=== PATIENT | female | born 1985 | race Caucasian/White ===

== ENCOUNTER 2018-07-29 14:01 | Emergency (ER) | payer OTHER ==
[2018-07-29 14:15] VITALS: BP 133/93
[2018-07-29] MEDS ORDERED: Albuterol 2.5 MG/3 ML NEB.SOL* (0.083%) INH ONE (14:21)
--- NOTE | 2018-07-29 14:26 | ED ---
Respiratory - HPI Summary HPI Summary: coughing for the last two weeks, cough initially producitive of yellow sputum, now with mostly whitish sputum. wheezing and shortness of breath over the last several days. no pleuritic pain. smokes 1/2 ppd - History of Current Complaint Chief Complaint: UCRespiratory Stated Complaint: COUGH Time Seen by Provider: 07/29/18 14:15 Hx Obtained From: Patient Onset/Duration: Gradual Onset, Lasting Weeks Initial Severity: Moderate Current Severity: Moderate Pain Intensity: 0 Character: Wheezing, Cough (Productive), Dyspnea on Exertion Sputum Amount: Small Sputum Color: White Aggravating Factor(s): Exertion Alleviating Factor(s): Nothing Associated Signs and Symptoms: SOB, Chills - Allergy/Home Medications Allergies/Adverse Reactions: Allergies Allergy/AdvReac Type Severity Reaction Status Date / Time No Known Allergies Allergy Verified 07/29/18 14:15 PMH/Surg Hx/FS Hx/Imm Hx Previously Healthy: Yes Psychiatric History: Reports: Hx Substance Abuse - heroin, Other Psychiatric Issues/Disorders - Surgical History Surgery Procedure, Year, and Place: LEEP procedure Infectious Disease History: No Infectious Disease History: Denies: Traveled Outside the [place] in Last 30 Days - Family History Known Family History: Positive: Respiratory Disease - asthma - Social History Alcohol Use: Rare Hx Substance Use: Yes Substance Use Type: Reports: None Substance Use Comment - Amount & Last Used: used to use heroin Hx Tobacco Use: Yes Smoking Status (MU): Light Every Day Tobacco Smoker Amount Used/How Often: 10 sig/day Review of Systems Constitutional: Negative Eyes: Negative ENT: Negative Cardiovascular: Negative Positive: Shortness Of Breath, Cough Gastrointestinal: Negative Genitourinary: Negative Musculoskeletal: Negative Skin: Negative Neurological: Negative All Other Systems Reviewed And Are Negative: Yes Physical Exam Triage Information Reviewed: Yes Vital Signs On Initial Exam: Initial Vitals Temp Pulse Resp BP Pulse Ox 36.6 C 112 16 133/93 96 07/29/18 14:09 07/29/18 14:09 07/29/18 14:09 07/29/18 14:09 07/29/18 14:09 Vital Signs Reviewed: Yes Appearance: Positive: Well-Appearing Skin: Positive: Warm, Dry Head/Face: Positive: Normal Head/Face Inspection Eyes: Positive: Normal ENT: Positive: Normal ENT inspection Neck: Positive: Supple Respiratory/Lung Sounds: Positive: Rales, Wheezes, Other - rales left lower lobe Cardiovascular: Positive: Normal Abdomen Description: Positive: Nontender Bowel Sounds: Positive: Present Diagnostics - Vital Signs Vital Signs Temp Pulse Resp BP Pulse Ox 07/29/18 14:09 36.6 C 112 16 133/93 96 - Laboratory Lab Statement: Any lab studies that have been ordered have been reviewed, and results considered in the medical decision making process. Disposition - Diagnoses Provider Diagnoses: Acute bronchitis, COPD (chronic obstructive pulmonary disease) Is Visit Related: No Discharge - Sign-Out/Discharge Documenting (check all that apply): Patient Departure All imaging exams completed and their final reports reviewed: Yes - Discharge Plan Condition: Fair Disposition: HOME Prescriptions: Amoxicillin PO (*) [Amoxicillin 500 MG CAP*] 500 mg PO TID #21 cap Fluconazole [Diflucan] 100 mg PO ONCE #1 tablet Spiriva Inhaler DEVICE* [Tiotropium Inhaler DEVICE*] 1 inh PO DAILY #30 device Patient Education Materials: Acute Bronchitis (ED), COPD (Chronic Obstructive Pulmonary Disease) (ED) Referrals: Patricia Odonnell MD [Primary Care Provider] - - Billing Disposition and Condition Condition: FAIR Disposition: Home
== END 2018-07-29 15:08 | disposition home or self-care (01) ==
LOC: UCEAST 14:01
DX: J44.9 Chronic obstructive pulmonary disease, unspecified (principal); F17.200 Nicotine dependence, unspecified, uncomplicated
CPT/HCPCS: 71046; 99212; G0463

== ENCOUNTER 2018-09-03 22:15 | Emergency (ER) | payer OTHER ==
--- NOTE | 2018-09-03 23:27 | ED ---
Skin Complaint - HPI Summary HPI Summary: This patient is a 32 y/o female, accompanied by her friend, who presents to [facility] with a chief complaint of an upper lip abscess since 09/01/18. She reports that this pimple has caused swelling and pain. At triage the patient rated her pain as an 8/10 in severity. She also reports a fever of 102.0 on . Temperature at triage measured to be 99/8. She claims that her swelling has doubled in size on 09/03/18. She denies any Hx of allergic reactions. She is currently using a control implant. - History of Current Complaint Chief Complaint: EDRashSkinAbscess Time Seen by Provider: 09/03/18 23:14 Stated Complaint: ABSCESS Hx Obtained From: Patient Onset/Duration: Started Hours Ago, Started Days Ago, Still Present Timing: Constant, Lasting Days Onset Severity: Moderate Current Severity: Severe Pain Intensity: 8 Pain Scale Used: 0-10 Numeric Skin Location: Other: - upper lip Character: Swelling, Pain Aggravating Symptom(s): Nothing Alleviating Symptom(s): Nothing Associated Signs & Symptoms: Fever - Allergy/Home Medications Allergies/Adverse Reactions: Allergies Allergy/AdvReac Type Severity Reaction Status Date / Time No Known Allergies Allergy Verified 09/03/18 22:21 PMH/Surg Hx/FS Hx/Imm Hx Sensory History: Denies: Hx Deafness Opthamlomology History: Denies: Hx Legally Blind Psychiatric History: Reports: Hx Substance Abuse - heroin, Other Psychiatric Issues/Disorders - Surgical History Surgery Procedure, Year, and Place: LEEP procedure Infectious Disease History: No Infectious Disease History: Denies: Traveled Outside the [place] in Last 30 Days - Family History Known Family History: Positive: Respiratory Disease - asthma - Social History Alcohol Use: Rare Hx Substance Use: Yes Substance Use Type: Reports: None Substance Use Comment - Amount & Last Used: used to use heroin Hx Tobacco Use: Yes Smoking Status (MU): Light Every Day Tobacco Smoker Amount Used/How Often: 10 sig/day Review of Systems Positive: Fever - she reported [employer] Positive: Other - Positive abscess, swelling and pain to upper lip Positive: Other - positive: abscess, swelling and pain to upper lip All Other Systems Reviewed And Are Negative: Yes Physical Exam - Summary Physical Exam Summary: Appearance: Well-appearing, Well-nourished, lying in bed comfortable Skin: Warm, dry, no obvious rash Eyes: sclera anicteric, no conjunctival pallor ENT: mucous membranes moist, upper lip diffuse moderate swelling with induration and fluctuance, bedside screening ultrasound showed fluid collection consistent with abscess. No signs of odontogenic infection. Neck: deferred Respiratory: No signs of respiratory distress Cardiovascular: Appears well perfused, mild tachycardia likely due to anxiety Abdomen: deferred Musculoskeletal: Moving all 4 extremities without obvious discomfort Neurological: Awake and alert, mentation is normal, speech is fluent and appropriate Psychiatric: affect is normal, does not appear anxious or depressed Triage Information Reviewed: Yes Vital Signs On Initial Exam: Initial Vitals Temp Pulse Resp BP Pulse Ox 99.8 F 115 16 151/104 97 09/03/18 22:17 09/03/18 22:17 09/03/18 22:17 09/03/18 22:17 09/03/18 22:17 Vital Signs Reviewed: Yes Procedures - Incision and Drainage Upper Face Anesthesia: Other - regional, trish infraorbital blocks with marcaine and lidocaine with epi Instrument(s): Scalpel - #11, a small stab incision was made in the lip and the lip was probed to break up loculations. A small amount of pus was drained. Diagnostics - Vital Signs Vital Signs Temp Pulse Resp BP Pulse Ox 09/03/18 22:17 99.8 F 115 16 151/104 97 - Laboratory Lab Statement: Any lab studies that have been ordered have been reviewed, and results considered in the medical decision making process. Course/Dx - Course Course Of Treatment: This patient is a 32 y/o female, accompanied by her friend , who presents to [facility] with a chief complaint of an upper lip abscess since . She reports that this pimple has caused swelling and pain. At triage the patient rated her pain as an 8/10 in severity. She also reports a fever of 102.0 on 09/03/18. Temperature at triage measured to be 99/8. She claims that her swelling has doubled in size on 09/03/18. She denies any Hx of allergic reactions. She is currently using a control implant. The physical exam showed upper lip diffuse moderate swelling with induration and fluctuance, bedside screening ultrasound showed fluid collection consistent with abscess. No signs of odontogenic infection. An incision and drainage procedure was performed. The patient will be discharged with Bactrim. She is agreeable with this plan. - Diagnoses Provider Diagnoses: Lip abscess Discharge - Sign-Out/Discharge Documenting (check all that apply): Patient Departure - DC Patient Received Moderate/Deep Sedation with Procedure: No - Discharge Plan Condition: Good Disposition: HOME Prescriptions: Sulfamethox/Trimethoprim DS* [Bactrim DS 800/160 TAB*] 1 tab PO BID #14 tab Referrals: Sundar Morin MD [Medical Doctor] - Additional Instructions: I have done as much of a procedure as I can safely do here in the ED. Hopefully this and the antibiotic will allow this infection to heal. Please call Dr. Morin's office in the morning for a followup exam with them so they can make sure this is healing properly. If it is not they may need to do a more involved procedure to drain it. - Billing Disposition and Condition Condition: GOOD Disposition: Home - Attestation Statements Document Initiated by Fede: Yes Documenting Scribe: Oliverio Pisano Provider For Whom Fede is Documenting (Include Credential): Tapan Gan MD Scribe Attestation: I, Oliverio Pisano, scribed for Tapan Gan MD on 09/04/18 at 2349. Scribe Documentation Reviewed: Yes Provider Attestation: The documentation as recorded by the Oliverio zarate accurately reflects the service I personally performed and the decisions made by me, Tapan Gan MD Status of Scribe Document: Viewed
[2018-09-04] MEDS ORDERED: Sulfamethox/Trimethoprim DS 800/160* TAB PO ONE (00:31)
[2018-09-04 04:20] VITALS: BP 139/97
== END 2018-09-04 00:59 | disposition home or self-care (01) ==
LOC: ED 22:15
DX: K12.2 Cellulitis and abscess of mouth (principal); R50.9 Fever, unspecified; F17.210 Nicotine dependence, cigarettes, uncomplicated
CPT/HCPCS: 10060; 99284; A9270-GY

== ENCOUNTER 2018-09-05 15:39 | Emergency (ER) | payer OTHER ==
[2018-09-05] MEDS ORDERED: NS 0.9% 1000 ML** 1,000 ML IV ONE ×2 (16:02→16:14)
--- NOTE | 2018-09-05 16:02 | ED ---
Skin Complaint - HPI Summary HPI Summary: Patient is a 32-year-old female who presents to emergency department for infection to her top lip times one week. Patient states that week ago she squeezed a pimple located just above her left upper lip. She states that area progressively got more painful, swollen and red. She was seen in the ER 09/03 and area was partially drained she was placed on Bactrim. Patient notes fevers at home. Denies associated symptoms of nausea, vomiting, difficulty swallowing or breathing. Past medical history of drug abuse. Symptoms are moderate in severity. Touching affected area makes symptoms worse. Nothing makes symptoms better. - History of Current Complaint Chief Complaint: EDFacialInjury Time Seen by Provider: 09/05/18 15:50 Stated Complaint: LIP INFECTION Hx Obtained From: Patient Pain Intensity: 10 - Allergy/Home Medications Allergies/Adverse Reactions: Allergies Allergy/AdvReac Type Severity Reaction Status Date / Time No Known Allergies Allergy Verified 09/03/18 22:21 PMH/Surg Hx/FS Hx/Imm Hx Previously Healthy: Yes Sensory History: Denies: Hx Legally Blind, Hx Deafness Opthamlomology History: Denies: Hx Legally Blind Psychiatric History: Reports: Hx Substance Abuse - heroin, Other Psychiatric Issues/Disorders - Surgical History Surgery Procedure, Year, and Place: LEEP procedure Infectious Disease History: No Infectious Disease History: Denies: Traveled Outside the [place] in Last 30 Days - Family History Known Family History: Positive: Respiratory Disease - asthma - Social History Occupation: Unemployed Lives: With Family Alcohol Use: Rare Hx Substance Use: Yes Substance Use Type: Reports: None Substance Use Comment - Amount & Last Used: used to use heroin Hx Tobacco Use: Yes Smoking Status (MU): Light Every Day Tobacco Smoker Amount Used/How Often: 10 sig/day Review of Systems Positive: Fever, Chills Positive: Other - Swelling and pain to upper lip Cardiovascular: Negative Respiratory: Negative Gastrointestinal: Negative Negative: Abdominal Pain, Vomiting, Nausea Skin: Negative All Other Systems Reviewed And Are Negative: Yes Physical Exam Triage Information Reviewed: Yes Vital Signs On Initial Exam: Initial Vitals Temp Pulse Resp BP Pulse Ox 98.4 F 97 14 156/100 96 09/05/18 15:45 09/05/18 15:45 09/05/18 15:45 09/05/18 15:45 09/05/18 15:45 Vital Signs Reviewed: Yes Appearance: Positive: Pain Distress - Pt. lying on bed, appears in pain but nontoxic appearing. Skin: Positive: Warm, Dry Head/Face: Positive: Normal Head/Face Inspection Eyes: Positive: Normal, EOMI ENT: Positive: Other - Significant edema noted to the top lip diffusely with erythema. Diffuse induration. A few small wounds noted. No drainage. Very minimal edema to face. No swelling of tongue or oral pharynx. Neck: Positive: Supple, Nontender, No Lymphadenopathy Musculoskeletal: Positive: Normal, Strength/ROM Intact Neurological: Positive: Normal, Alert, Oriented to Person Place, Time Diagnostics - Vital Signs Vital Signs Temp Pulse Resp BP Pulse Ox 09/05/18 15:45 98.4 F 97 14 156/100 96 - Laboratory Result Diagrams: 09/05/18 16:33 09/05/18 16:33 Lab Statement: Any lab studies that have been ordered have been reviewed, and results considered in the medical decision making process. Course/Dx - Course Course Of Treatment: Patient presenting with marked infection to her upper lip. She is afebrile with stable vital signs. Patient evaluated by Dr. Eubanks as well. Will start patient on IV antibiotics, vancomycin and Zosyn. Pending labs. CBC shows normal WBC. CRP elevated at 78. Dr. Eubanks recommends admission for ongoing iv antibx given extend of infection and worsening swelling despite bactrim. U/S obtained to evaluate for drainable abscess. U/S shows edema with very small 1cm collection of fluid per radiology. Discussed with pt. admission but pt. states she would rather go home and continue PO meds. Pt. has decision making capacity. Discussed with patient if this infection worsens can cause deformity, bacteremia, and . Patient understands risk of leaving the ER and will sign out AGAINST MEDICAL ADVICE. She was given information for surgery/wound care follow-up with Dr. Ramos. Antibiotics discussed with Dr. Eubanks and will switch patient to doxycycline. To return to the ER for reevaluation, increased redness, swelling, fever, vomiting. - Differential Diagnoses - Skin Complaint Differential Diagnoses: Abscess, Cellulitis - Diagnoses Provider Diagnoses: Lip abscess Discharge - Sign-Out/Discharge Documenting (check all that apply): Patient Departure Patient Received Moderate/Deep Sedation with Procedure: No - Discharge Plan Condition: Stable Disposition: AGAINST MEDICAL ADVICE Prescriptions: RX: DOXYcycline CAP(*) [DOXYcycline 100MG CAP(*)] 100 mg PO BID #20 cap Patient Education Materials: Abscess (ED) Referrals: [facility] [Outside] Ranjit Ramos MD [Medical Doctor] - Additional Instructions: Call Dr. Ramos's office on Friday for an appointment FEDE Start new antibiotic today, doxycycline Can stop bactrim Ice intermittently Tylenol or Motrin for pain as directed Return to ER for increased pain, redness, swelling, fever - Billing Disposition and Condition Condition: STABLE Disposition: Against Medical Advice
[2018-09-05] MEDS ORDERED: ED Piperacillin/Tazobac 3.375 3.375 GM/100 ML PREMIX.SET IVPB ONE (16:14)
[2018-09-05] MEDS ORDERED: ED Vancomycin 1 GM/250 ML 1 GM/250 ML PREMIX.SET IVPB ONE (16:14)
[2018-09-05 16:50] LABS: ABS Basophils 0 10^3/ul (0-0.2); ABS Eosinophils 0.4 10^3/ul (0-0.6); ABS Lymphocytes 2.5 10^3/ul (1.0-4.8); ABS Monocytes 0.8 10^3/ul (0-0.8); ABS Nucleated RBC 0 10^3/ul; Eosinophil % 4.7 %; Hematocrit 38 % (35-47); Hemoglobin 12.9 g/dl (12.0-16.0); Lymphocyte % 28.4 %; Mean Corpuscular HGB Conc 34 g/dl (31-36); Mean Corpuscular Hemoglobin 29 pg (27-31); Mean Corpuscular Volume 84 fL (80-97); Mean Platelet Volume 8.1 fL (7.4-10.4); Nucleated Red Blood Cells % 0; Platelet Count 181 10^3/ul (150-450); Red Blood Count 4.53 10^6/ul (4.00-5.40); Red Cell Distribution Width 16 % (10.5-15); White Blood Count 8.7 10^3/ul (3.5-10.8)
[2018-09-05 17:06] LABS: Albumin 3.8 g/dL (3.2-5.2); Albumin/Globulin Ratio 1.3 (1-3); BUN/Creatinine Ratio 11.8 (8-20); C Reactive Protein 78.68 mg/L (<8.01); Calcium 8.7 mg/dL (8.6-10.3); EGFR African American 121.3 (>60); EGFR Non-African American 100.3 (>60); Globulin 2.9 g/dL (2-4); Potassium 3.8 mmol/L (3.5-5.0); Total Bilirubin 0.4 mg/dL (0.2-1.0); Total Protein 6.7 g/dL (6.4-8.9)
[2018-09-05] MEDS ORDERED: Ketorolac INJ* 30 MG/ML 1 ML VIAL IV PUSH ONE (17:16)
[2018-09-05 20:49] VITALS: BP 112/70
== END 2018-09-05 20:49 | disposition left against medical advice (07) ==
LOC: ED 15:39
DX: K12.2 Cellulitis and abscess of mouth (principal); R60.9 Edema, unspecified; F17.210 Nicotine dependence, cigarettes, uncomplicated
CPT/HCPCS: 36415; 76536; 80053; 83605; 85025; 86140; 87040; 96361; 96374; 96375; 99283; J1885; J2543; J3370

== ENCOUNTER 2018-11-14 21:29 | Emergency (ER) | payer SELFPAY ==
--- NOTE | 2018-11-14 22:02 | ED ---
Psychiatric Complaint - HPI Summary HPI Summary: This patient is a 33 year old female presenting to [facility] with a chief complaint of MHE. 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 Patient states that she recently went to a [facility] days rehab center for heroin. Patient states that she has tried to quit, but has always relapsed. Patient states that she is feeling hopeless after she lost her job and with no place to live. The pain is rated 0/10 in severity. Symptoms aggravated by nothing. Symptoms alleviated by nothing. Patient states that she does not have plans for SI, but is also ambivalent and does not care. - History Of Current Complaint Chief Complaint: EDMentalHealth Time Seen by Provider: 11/14/18 21:46 Hx Obtained From: Patient Hx Last Menstrual Period: nexplanon Onset/Duration: Still Present Timing: Constant Severity Currently: Moderate Character: Depressed Aggravating Factor(s): Nothing Alleviating Factor(s): Nothing Related History: Positive For: Admissions Related To Substance Abuse Has Suicidal: Denies: Thoughts Ingestion History: Type/Name Of Drug - heroine - Allergies/Home Medications Allergies/Adverse Reactions: Allergies Allergy/AdvReac Type Severity Reaction Status Date / Time No Known Allergies Allergy Verified 11/14/18 21:36 Home Medications: Home Medications NK [No Home Medications Reported] 11/14/18 [History Confirmed 11/14/18] PMH/Surg Hx/FS Hx/Imm Hx Previously Healthy: No Endocrine/Hematology History: Denies: Hx Diabetes, Hx Thyroid Disease Cardiovascular History: Denies: Hx Hypertension Respiratory History: Denies: Hx Asthma, Hx Chronic Obstructive Pulmonary Disease (COPD) GI History: Denies: Hx Ulcer Sensory History: Denies: Hx Legally Blind, Hx Deafness Opthamlomology History: Denies: Hx Legally Blind Psychiatric History: Reports: Hx Substance Abuse - heroin, Other Psychiatric Issues/Disorders - Surgical History Surgery Procedure, Year, and Place: LEEP procedure Infectious Disease History: No Infectious Disease History: Denies: Hx Hepatitis, Hx Human Immunodeficiency Virus (HIV), Traveled Outside the [place] in Last 30 Days - Family History Known Family History: Positive: Respiratory Disease - asthma - Social History Occupation: Unemployed Alcohol Use: Occasionally Hx Substance Use: Yes Substance Use Type: Reports: Cocaine, Heroin Hx Tobacco Use: Yes Smoking Status (MU): Light Every Day Tobacco Smoker Amount Used/How Often: 10 sig/day Review of Systems Negative: Fever Positive: Depressed, Other - heroine abuse All Other Systems Reviewed And Are Negative: Yes Physical Exam - Summary Physical Exam Summary: Appearance: Appears intoxicated Skin: Numerous superficial excoriations from picking Eyes: sclera anicteric, no conjunctival pallor ENT: mucous membranes moist Neck: deferred Respiratory: No signs of respiratory distress Cardiovascular: Appears well perfused, pulses are nml Abdomen: deferred Musculoskeletal: Moving all 4 extremities without obvious discomfort Triage Information Reviewed: Yes Vital Signs On Initial Exam: Initial Vitals Temp Pulse Resp BP Pulse Ox 98.4 F 111 15 114/82 97 11/14/18 21:31 11/14/18 21:31 11/14/18 21:31 11/14/18 21:31 11/14/18 21:31 Vital Signs Reviewed: Yes Diagnostics - Vital Signs Vital Signs Temp Pulse Resp BP Pulse Ox 11/14/18 21:31 98.4 F 111 15 114/82 97 - Laboratory Result Diagrams: 11/14/18 22:04 11/14/18 22:04 Lab Statement: Any lab studies that have been ordered have been reviewed, and results considered in the medical decision making process. Course/Dx - Course Course Of Treatment: This patient is a 33 year old female presenting to [facility] with a chief complaint of MHE. 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 Patient states that she recently went to a 3 days rehab center for heroin. Patient states that she has tried to quit, but has always relapsed. Patient states that she is feeling hopeless after she lost her job and with no place to live. Per Dr. Peres at 0030, patient will be placed in MHU hold and re-evaluated in the morning, pending sobriety. Patient will be signed out to Dr. Nur at end of shift, pending MHE. Discharge - Sign-Out/Discharge Documenting (check all that apply): Sign-Out Patient Signing out patient TO: Elizabeth Nur Patient Received Moderate/Deep Sedation with Procedure: No - Discharge Plan Referrals: No Primary Care Phys,NOPCP [Primary Care Provider] - - Attestation Statements Document Initiated by Scribe: Yes Documenting Scribe: Iban Benton Provider For Whom Scribe is Documenting (Include Credential): Tapan Gan MD Scribe Attestation: Iban Cook, scribed for Tapan Gan MD on 11/15/18 at 0654. Status of Scribrobbin Document: Ready
[2018-11-14 22:13] LABS: ABS Eosinophils 0.4 10^3/ul (0-0.6); ABS Lymphocytes 2.7 10^3/ul (1.0-4.8); ABS Monocytes 0.6 10^3/ul (0-0.8); ABS Neutrophils 2.8 10^3/ul (1.5-7.7); Eosinophil % 6.9 %; Hematocrit 38 % (35-47); Hemoglobin 13.1 g/dL (12.0-16.0); Lymphocyte % 41.7 %; Mean Corpuscular HGB Conc 35 g/dL (31-36); Mean Corpuscular Hemoglobin 29 pg (27-31); Mean Corpuscular Volume 84 fL (80-97); Mean Platelet Volume 7.7 fL (7.4-10.4); Nucleated Red Blood Cells % 0.1; Platelet Count 264 10^3/uL (150-450); Red Blood Count 4.52 10^6 /uL (3.70-4.87); Red Cell Distribution Width 14 % (10.5-15); White Blood Count 6.5 10^3/uL (3.5-10.8)
[2018-11-14 22:28] LABS: ALT 26 U/L (7-52); AST 23 U/L (13-39); Albumin 4.1 g/dL (3.2-5.2); Albumin/Globulin Ratio 1.4 (1-3); Alkaline Phosphatase 100 U/L (34-104); Anion Gap 7 mmol/L (2-11); BUN/Creatinine Ratio 18.2 (8-20); Blood Urea Nitrogen 14 mg/dL (6-24); CO2 Carbon Dioxide 26 mmol/L (22-32); Calcium 9.6 mg/dL (8.6-10.3); Chloride 105 mmol/L (101-111); EGFR African American 104.5 (>60); EGFR Non-African American 86.3 (>60); Glucose 111 mg/dL (70-100); Potassium 4.1 mmol/L (3.5-5.0); Sodium 138 mmol/L (135-145); Total Protein 7.1 g/dL (6.4-8.9)
[2018-11-14 22:31] LABS: Urine Appearance Cloudy; Urine Bacteria 1+ (Absent); Urine Bilirubin Negative (Negative); Urine Blood Negative (Negative); Urine Color Yellow; Urine Glucose Negative (Negative); Urine Ketones Negative (Negative); Urine Nitrite Negative (Negative); Urine Protein Negative (Negative); Urine Red Blood Cell 2+(6-10/hpf) (Absent); Urine Specific Gravity 1.025 (1.010-1.030); Urine Squamous Epithelial Cell Present (Absent); Urine Urobilinogen Negative (Negative); Urine White Blood Cell 3+(>20/hpf) (Absent)
[2018-11-14 22:34] LABS: Urine Benzodiazepine Screen None Detected (None Detect); Urine Opiates Screen Presumptive Positive (None Detect)
[2018-11-14 22:35] LABS: HCG Pregnancy < 0.60 mIU/mL
[2018-11-14 22:41] LABS: Acetaminophen < 15 mcg/mL; Alcohol < 10 mg/dL (<10); Salicylate < 2.50 mg/dL (<30)
[2018-11-14 22:57] LABS: TSH (Thyroid Stimulating Horm) 3.24 mcIU/mL (0.34-5.60)
--- NOTE | 2018-11-15 07:21 | ED ---
Progress - Progress Note Progress Note: The patient is a sign-out from Dr. Tapan Gan MD, to Dr. Elizabeth Nur MD, at change of shift at 0700 pending MHE and disposition. Per track laying equipment operator Karely Langley, pt was cleared by Dr. Peres, psych, for discharge with diagnosis of substance abuse. She also is diagnosed with UTI due to positive WBCs and bacteria in UA. She will be prescribed Keflex. Strict return precautions given, and she will follow up with substance abuse referrals from mental health and PCP referral. She agrees with this plan and understands the need for return to the ED for any new or worsening symptoms. - Consult/PCP Time Called: 23:12 Course/Dx - Diagnoses Provider Diagnoses: Substance abuse, UTI (urinary tract infection) - Provider Notifications Discussed Care Of Patient With: Karely Langley - mental health track laying equipment operator Time Discussed With Above Provider: 10:00 Instructed by Provider To: Other - I consulted with Karely Langley at 1000 in which she states that Dr. Peres has cleared the patient for discharge with diagnosis of substance abuse. Discharge - Sign-Out/Discharge Documenting (check all that apply): Patient Departure - Patient will be discharged home., Receiving Sign-Out Receiving patient FROM: Tapan Gan - Patient is a sign-out at shift change at 0700 pending MHE and disposition. Patient Received Moderate/Deep Sedation with Procedure: No - Discharge Plan Condition: Stable Disposition: HOME Prescriptions: Cephalexin CAP* [Keflex CAP*] 500 mg PO BID #14 cap Patient Education Materials: Urinary Tract Infection in Women (DC), Polysubstance Abuse (ED) Referrals: [facility] [Outside] - 3 Days Additional Instructions: Follow up with the referrals we have provided for you. RETURN TO THE EMERGENCY DEPARTMENT FOR CHANGING OR WORSENING SYMPTOMS. - Billing Disposition and Condition Condition: STABLE Disposition: Home - Attestation Statements Document Initiated by Scribe: Yes Documenting Scribe: Brynn Wolfe Provider For Whom Fede is Documenting (Include Credential): Dr. Elizabeth Nur MD Scribe Attestation: Brynn Cook scribed for Dr. Elizabeth Nur MD on 11/16/18 at 1246. Scribe Documentation Reviewed: Yes Provider Attestation: The documentation as recorded by the Brynn zarate accurately reflects the service I personally performed and the decisions made by me, Dr. Elizabeth Nur MD Status of Scribe Document: Viewed
[2018-11-15] MEDS ORDERED: Cephalexin CAP* 500 MG PO ONE (07:24)
--- NOTE | 2018-11-15 08:16 | PN ---
ED Flex Patient Progress Note Date of Service: 11/14/18 Subjective: This is a 33 year-old F who is pending admission to [facility] / transfer to another psychiatric facility / discharge to home / or being observed secondary to drug use. Pt. examined in room 16 at 0810. She is sleeping comfortably. Objective: Vitals: Most recent vital signs documented below. General NAD Laboratory: Current laboratory results documented below. Assessment: Drug use Plan: Pending MHE. Vital Signs Temp Pulse Resp BP Pulse Ox 98.1 F 81 16 93/54 95 11/15/18 05:40 11/15/18 05:40 11/15/18 05:40 11/15/18 05:40 11/15/18 05:40 Lab Results - Entire Visit 11/14/18 11/14/18 11/14/18 22:04 22:04 21:47 WBC 6.5 RBC 4.52 Hgb 13.1 Hct 38 MCV 84 MCH 29 MCHC 35 RDW 14 Plt Count 264 MPV 7.7 Neut % (Auto) 42.4 Lymph % (Auto) 41.7 [place] % (Auto) 8.6 Eos % (Auto) 6.9 Baso % (Auto) 0.4 Absolute Neuts (auto) 2.8 Absolute Lymphs (auto) 2.7 Absolute Monos (auto) 0.6 Absolute Eos (auto) 0.4 Absolute Basos (auto) 0.0 Absolute Nucleated RBC 0.0 Nucleated RBC % 0.1 Sodium 138 Potassium 4.1 Chloride 105 Carbon Dioxide 26 Anion Gap 7 BUN 14 Creatinine 0.77 Est GFR ( Amer) 104.5 Est GFR (Non-Af Amer) 86.3 BUN/Creatinine Ratio 18.2 Glucose 111 H Calcium 9.6 Total Bilirubin 0.30 AST 23 ALT 26 Alkaline Phosphatase 100 Total Protein 7.1 Albumin 4.1 Globulin 3.0 Albumin/Globulin Ratio 1.4 TSH 3.24 Beta HCG, Quant < 0.60 Urine Color Urine Appearance Urine pH Ur Specific [place] Urine Protein Urine Ketones Urine Blood Urine Nitrate Urine Bilirubin Urine Urobilinogen Ur Leukocyte Esterase Urine WBC (Auto) Urine RBC (Auto) Ur Squamous Epith Cells Urine Bacteria Urine Glucose Salicylates < 2.50 Urine Opiates Screen Presumptive positive A Acetaminophen < 15 Ur Barbiturates Screen None detected Ur Phencyclidine Scrn None detected Ur Amphetamines Screen Presumptive positive A U Benzodiazepines Scrn None detected Urine Cocaine Screen Presumptive positive A U Cannabinoids Screen None detected Serum Alcohol < 10 11/14/18 21:47 WBC RBC Hgb Hct MCV MCH MCHC RDW Plt Count MPV Neut % (Auto) Lymph % (Auto) [place] % (Auto) Eos % (Auto) Baso % (Auto) Absolute Neuts (auto) Absolute Lymphs (auto) Absolute Monos (auto) Absolute Eos (auto) Absolute Basos (auto) Absolute Nucleated RBC Nucleated RBC % Sodium Potassium Chloride Carbon Dioxide Anion Gap BUN Creatinine Est GFR ( Amer) Est GFR (Non-Af Amer) BUN/Creatinine Ratio Glucose Calcium Total Bilirubin AST ALT Alkaline Phosphatase Total Protein Albumin Globulin Albumin/Globulin Ratio TSH Beta HCG, Quant Urine Color Yellow Urine Appearance Cloudy Urine pH 5.0 Ur Specific [place] 1.025 Urine Protein Negative Urine Ketones Negative Urine Blood Negative Urine Nitrate Negative Urine Bilirubin Negative Urine Urobilinogen Negative Ur Leukocyte Esterase 2+ A Urine WBC (Auto) 3+(>20/hpf) A Urine RBC (Auto) 2+(6-10/hpf) A Ur Squamous Epith Cells Present A Urine Bacteria 1+ A Urine Glucose Negative Salicylates Urine Opiates Screen Acetaminophen Ur Barbiturates Screen Ur Phencyclidine Scrn Ur Amphetamines Screen U Benzodiazepines Scrn Urine Cocaine Screen U Cannabinoids Screen Serum Alcohol
[2018-11-15 10:11] VITALS: BP 107/69
== END 2018-11-15 10:10 | disposition home or self-care (01) ==
LOC: ED 21:29
DX: F19.10 Other psychoactive substance abuse, uncomplicated (principal); N39.0 Urinary tract infection, site not specified; F17.210 Nicotine dependence, cigarettes, uncomplicated; F11.10 Opioid abuse, uncomplicated; F32.9 Major depressive disorder, single episode, unspecified
CPT/HCPCS: 36415; 80053; 80307; 80320; 80329; 81003; 81015; 84443; 84702; 85025; 87086; 99285; A9270-GY; G0480

== ENCOUNTER → 2018-12-15 18:52 | Emergency (ER) | payer SELFPAY ==
[2018-12-15 20:52] LABS: ABS Eosinophils 0.3 10^3/ul (0-0.6); ABS Lymphocytes 2.2 10^3/ul (1.0-4.8); ABS Monocytes 0.4 10^3/ul (0-0.8); ABS Neutrophils 1.9 10^3/ul (1.5-7.7); Eosinophil % 6.2 %; Hematocrit 38 % (35-47); Hemoglobin 12.7 g/dL (12.0-16.0); Lymphocyte % 45.3 %; Mean Corpuscular HGB Conc 34 g/dL (31-36); Mean Corpuscular Hemoglobin 28 pg (27-31); Mean Corpuscular Volume 84 fL (80-97); Mean Platelet Volume 7.9 fL (7.4-10.4); Platelet Count 208 10^3/uL (150-450); Red Blood Count 4.46 10^6 /uL (3.70-4.87); Red Cell Distribution Width 14 % (10.5-15); White Blood Count 4.8 10^3/uL (3.5-10.8)
[2018-12-15 21:10] LABS: ALT 15 U/L (7-52); AST 19 U/L (13-39); Albumin 3.7 g/dL (3.2-5.2); Albumin/Globulin Ratio 1.2 (1-3); Alkaline Phosphatase 79 U/L (34-104); Anion Gap 8 mmol/L (2-11); BUN/Creatinine Ratio 22.5 (8-20); Blood Urea Nitrogen 16 mg/dL (6-24); C Reactive Protein 1.45 mg/L (<8.01); CO2 Carbon Dioxide 24 mmol/L (22-32); Calcium 9.7 mg/dL (8.6-10.3); Chloride 109 mmol/L (101-111); EGFR African American 114.7 (>60); EGFR Non-African American 94.8 (>60); Globulin 3.1 g/dL (2-4); Glucose 95 mg/dL (70-100); Potassium 4.2 mmol/L (3.5-5.0); Sodium 141 mmol/L (135-145); Total Protein 6.8 g/dL (6.4-8.9)
[2018-12-15 21:18] LABS: Alcohol < 10 mg/dL (<10); Salicylate < 2.50 mg/dL (<30)
[2018-12-15 21:25] LABS: Urine Benzodiazepine Screen Presumptive Positive (None Detect); Urine Opiates Screen Presumptive Positive (None Detect)
--- NOTE | 2018-12-15 22:44 | ED ---
Substance Abuse/Use - HPI Summary HPI Summary: Patient brought by PD for 2208. Patient was found lying face down in the yard by a neighbor. Patient is alert and oriented here in the ED, responds appropriately and coherently. Denies EtOH or recreational drug use. Denies any pain injury or symptoms. Denies SI or HI. - History Of Current Complaint Chief Complaint: EDSubstanceAbuse Stated Complaint: 2208 PER POLICE Time Seen by Provider: 12/15/18 19:27 Hx Obtained From: Patient Hx Last Menstrual Period: nexplanon Onset/Duration of Drug/ETOH Abuse: Hours Severity Initially: Moderate Severity Currently: Mild Aggravating Factor(s): Nothing Alleviating Factor(s): Nothing Associated Signs And Symptoms: Altered Mental Status - Allergies/Home Medications Allergies/Adverse Reactions: Allergies Allergy/AdvReac Type Severity Reaction Status Date / Time No Known Allergies Allergy Verified 11/14/18 21:36 PMH/Surg Hx/FS Hx/Imm Hx Endocrine/Hematology History: Denies: Hx Diabetes, Hx Thyroid Disease Cardiovascular History: Denies: Hx Hypertension Respiratory History: Denies: Hx Asthma, Hx Chronic Obstructive Pulmonary Disease (COPD) GI History: Denies: Hx Ulcer Sensory History: Denies: Hx Legally Blind, Hx Deafness Opthamlomology History: Denies: Hx Legally Blind EENT History: Denies: Hx Hearing Aid Neurological History: Denies: Hx Dementia Psychiatric History: Reports: Hx Substance Abuse - heroin, Other Psychiatric Issues/Disorders Denies: Hx Eating Disorder, Hx of Violent Episodes Against Others - Surgical History Surgery Procedure, Year, and Place: LEEP procedure Infectious Disease History: No Infectious Disease History: Denies: Hx Hepatitis, Hx Human Immunodeficiency Virus (HIV), Traveled Outside the [place] in Last 30 Days - Family History Known Family History: Positive: Respiratory Disease - asthma - Social History Alcohol Use: Occasionally Hx Substance Use: Yes Substance Use Type: Reports: Cocaine, Heroin Substance Use Comment - Amount & Last Used: heroin today Hx Tobacco Use: Yes Smoking Status (MU): Light Every Day Tobacco Smoker Amount Used/How Often: 10 sig/day Review of Systems Constitutional: Negative Eyes: Negative ENT: Negative Cardiovascular: Negative Respiratory: Negative Gastrointestinal: Negative Genitourinary: Negative Musculoskeletal: Negative Skin: Negative Neurological: Negative Psychological: Normal All Other Systems Reviewed And Are Negative: Yes Physical Exam - Summary Physical Exam Summary: No trauma to mouth, face, head noted. No pain with palpation of neck, chest wall, abdomen or back. Patient was offered extremities freely. Patient answered questions clearly and coherently. Patient mildly drowsy. Lung sounds clear to auscultation bilaterally. RRR. Abdomen soft nontender. Triage Information Reviewed: Yes Vital Signs On Initial Exam: Initial Vitals Temp Pulse Resp BP Pulse Ox 98.6 F 86 16 127/67 96 12/15/18 18:57 12/15/18 18:57 12/15/18 18:57 12/15/18 18:57 12/15/18 18:57 Vital Signs Reviewed: Yes Appearance: Positive: Well-Appearing Skin: Positive: Warm Head/Face: Positive: Normal Head/Face Inspection Eyes: Positive: Normal ENT: Positive: Normal ENT inspection Dental: Negative: Dental Fracture @, Bleeding Neck: Positive: Supple Respiratory/Lung Sounds: Positive: Clear to Auscultation Cardiovascular: Positive: Normal Abdomen Description: Positive: Nontender Musculoskeletal: Positive: Normal Neurological: Positive: Normal Psychiatric: Positive: Normal AVPU Assessment: Alert - [place]one Coma Scale Best Eye Response: 4 - Spontaneous Best Motor Response: 6 - Obeys Commands Best Verbal Response: 5 - Oriented Coma Scale Total: 15 Diagnostics - Vital Signs Vital Signs Temp Pulse Resp BP Pulse Ox 12/15/18 22:32 98.9 F 80 14 107/68 98 12/15/18 19:30 98.9 F 71 16 103/67 98 12/15/18 18:57 98.6 F 86 16 127/67 96 - Laboratory Lab Results: Lab Results 12/15/18 12/15/18 12/15/18 Range/Units 20:41 20:47 20:47 WBC 4.8 (3.5-10.8) 10^3/uL RBC 4.46 (3.70-4.87) 10^6 /uL Hgb 12.7 (12.0-16.0) g/dL Hct 38 (35-47) % MCV 84 (80-97) fL MCH 28 (27-31) pg MCHC 34 (31-36) g/dL RDW 14 (10.5-15) % Plt Count 208 (150-450) 10^3/uL MPV 7.9 (7.4-10.4) fL Neut % (Auto) 40.0 % Lymph % (Auto) 45.3 % [place] % (Auto) 8.2 % Eos % (Auto) 6.2 % Baso % (Auto) 0.3 % Absolute Neuts (auto) 1.9 (1.5-7.7) 10^3/ul Absolute Lymphs (auto) 2.2 (1.0-4.8) 10^3/ul Absolute Monos (auto) 0.4 (0-0.8) 10^3/ul Absolute Eos (auto) 0.3 (0-0.6) 10^3/ul Absolute Basos (auto) 0.0 (0-0.2) 10^3/ul Absolute Nucleated RBC 0.0 10^3/ul Nucleated RBC % 0.0 Sodium 141 (135-145) mmol/L Potassium 4.2 (3.5-5.0) mmol/L Chloride 109 (101-111) mmol/L Carbon Dioxide 24 (22-32) mmol/L Anion Gap 8 (2-11) mmol/L BUN 16 (6-24) mg/dL Creatinine 0.71 (0.51-0.95) mg/dL Est GFR ( Amer) 114.7 (>60) Est GFR (Non-Af Amer) 94.8 (>60) BUN/Creatinine Ratio 22.5 H (8-20) Glucose 95 (70-100) mg/dL Calcium 9.7 (8.6-10.3) mg/dL Total Bilirubin 0.30 (0.2-1.0) mg/dL AST 19 (13-39) U/L ALT 15 (7-52) U/L Alkaline Phosphatase 79 (34-104) U/L C-Reactive Protein 1.45 (<8.01) mg/L Total Protein 6.8 (6.4-8.9) g/dL Albumin 3.7 (3.2-5.2) g/dL Globulin 3.1 (2-4) g/dL Albumin/Globulin Ratio 1.2 (1-3) Salicylates < 2.50 (<30) mg/dL Urine Opiates Screen Presumptive positive A (None Detect) Ur Barbiturates Screen None detected (None Detect) Ur Phencyclidine Scrn None detected (None Detect) Ur Amphetamines Screen None detected (None Detect) U Benzodiazepines Scrn Presumptive positive A (None Detect) Urine Cocaine Screen Presumptive positive A (None Detect) U Cannabinoids Screen None detected (None Detect) Serum Alcohol < 10 (<10) mg/dL Result Diagrams: 12/15/18 20:47 12/15/18 20:47 Lab Statement: Any lab studies that have been ordered have been reviewed, and results considered in the medical decision making process. Course/Dx - Course Course Of Treatment: Patient brought by for 2208. Patient was found lying face down in the yard by a neighbor. Patient is alert and oriented here in the ED, responds appropriately and coherently. Denies EtOH or recreational drug use. Denies any pain injury or symptoms. Denies SI or HI. Physical exam:No trauma to mouth, face, head noted. No pain with palpation of neck, chest wall, abdomen or back. Patient was offered extremities freely. Patient answered questions clearly and coherently. Patient mildly drowsy. Lung sounds clear to auscultation bilaterally. RRR. Abdomen soft nontender. Vital signs within normal limits. Labs unremarkable. Drug screen positive for benzos, cocaine and opiates. EtOH negative. Patient clinically sober. Ambulating normally. [facility] - Diagnoses Provider Diagnoses: Substance abuse Discharge - Sign-Out/Discharge Documenting (check all that apply): Patient Departure Patient Received Moderate/Deep Sedation with Procedure: No - Discharge Plan Condition: Stable Disposition: HOME Patient Education Materials: Polysubstance Abuse (ED) Referrals: No Primary Care Phys,NOPCP [Primary Care Provider] - Additional Instructions: Return to the ED for any new or worsening symptoms. - Billing Disposition and Condition Condition: STABLE Disposition: Home
[2018-12-15 23:20] VITALS: BP 106/69
== END | disposition home or self-care (01) ==
LOC: ED 18:52
DX: F11.10 Opioid abuse, uncomplicated (principal); F14.10 Cocaine abuse, uncomplicated; F13.10 Sedative, hypnotic or anxiolytic abuse, uncomplicated; F17.210 Nicotine dependence, cigarettes, uncomplicated
CPT/HCPCS: 36415; 80053; 80307; 80320; 80329; 85025; 86140; 99283; G0480

== ENCOUNTER 2019-02-18 15:32 | Emergency (ER) | payer OTHER ==
[2019-02-18 15:48] VITALS: BP 132/75
[2019-02-18] MEDS ORDERED: Acetaminophen TAB* 325 MG PO ONE (16:01)
[2019-02-18] MEDS ORDERED: Sulfamethox/Trimethoprim DS 800/160* TAB PO ONE (16:04)
--- NOTE | 2019-02-18 16:06 | UC ---
Skin Complaint HPI - HPI Summary HPI Summary: 33 yo female with fairly acute onset of fever/chills/myalgias started today right wrist abscess (flexor aspect) and pain base of left first MC hx IVDA body covered with excoriations denied hx MRSA - History of Current Complaint Chief Complaint: UCSkin Time Seen by Provider: 02/18/19 15:53 Stated Complaint: SKIN COMPLAINT Hx Obtained From: Patient Hx Last Menstrual Period: Nexplanon implant Onset/Duration: Gradual Onset, Lasting Hours Timing: Constant Onset Severity: Severe Current Severity: Severe Pain Intensity: 10 Pain Scale Used: 0-10 Numeric Location: Other - see HPI Character: Swelling, Pain, Redness Associated Signs & Symptoms: Positive: Fever, Chills, Tenderness - Allergy/Home Medications Allergies/Adverse Reactions: Allergies Allergy/AdvReac Type Severity Reaction Status Date / Time No Known Allergies Allergy Verified 02/18/19 17:03 Home Medications: Home Medications NK [No Home Medications Reported] 02/18/19 [History Confirmed 02/18/19] PMH/Surg Hx/FS Hx/Imm Hx Previously Healthy: Yes - Surgical History Surgical History: Yes Surgery Procedure, Year, and Place: LEEP procedure - Family History Known Family History: Positive: Respiratory Disease - asthma - Social History Alcohol Use: Occasionally Substance Use Type: Cocaine, Heroin Substance Use Comment - Amount & Last Used: heroin today Smoking Status (MU): Light Every Day Tobacco Smoker Amount Used/How Often: 10 sig/day Household Exposure Type: Cigarettes Review of Systems All Other Systems Reviewed And Are Negative: Yes Constitutional: Positive: Fever, Chills Skin: Positive: Negative Eyes: Positive: Negative ENT: Positive: Negative Respiratory: Positive: Negative Cardiovascular: Positive: Negative Gastrointestinal: Positive: Negative Genitourinary: Positive: Negative Motor: Positive: Decreased ROM - both wrists Musculoskeletal: Positive: Edema Neurological: Positive: Negative Psychological: Positive: Negative Physical Exam Triage Information Reviewed: Yes Appearance: Ill-Appearing Vital Signs: Initial Vital Signs Temp 102.8 F 02/18/19 15:43 Pulse 96 02/18/19 15:43 Resp 18 02/18/19 15:43 BP 132/75 02/18/19 15:43 Pulse Ox 99 02/18/19 15:43 Vital Signs Reviewed: Yes Eyes: Positive: Conjunctiva Clear ENT: Positive: Hearing grossly normal. Negative: Nasal congestion, Nasal drainage, Trismus, Dental tenderness Neck: Positive: Supple, Nontender Respiratory: Positive: Lungs clear, Normal breath sounds, No respiratory distress, No accessory muscle use Cardiovascular: Positive: RRR, No Murmur, Tachycardia Musculoskeletal: Positive: ROM Limited @ - bilat wrists Neurological: Positive: Alert Psychological Exam: Normal Skin Exam: Other - covered with excoriations, abscess right wrist Course/Dx - Diagnoses Provider Diagnosis: Abscess of upper limb, Cellulitis of arm, right Discharge - Sign-Out/Discharge Documenting (check all that apply): Patient Departure All imaging exams completed and their final reports reviewed: No Studies - Discharge Plan Condition: Guarded Disposition: AGAINST MEDICAL ADVICE Referrals: No Primary Care Phys,NOPCP [Primary Care Provider] - Additional Instructions: I suggest you go directly to the ER for evaluation I am concerned you may be SEPTIC (have a severe infection) This needs a higher level of care than we can provide - Billing Disposition and Condition Condition: GUARDED Disposition: Against Medical Advice
== END 2019-02-18 16:10 | disposition left against medical advice (07) ==
LOC: UCEAST 15:32
DX: L03.113 Cellulitis of right upper limb (principal)
CPT/HCPCS: 99212; A9270-GY; G0463

== ENCOUNTER 2019-02-18 16:56 | Emergency (ER) | payer MEDICAID, OTHER ==
[2019-02-18 18:49] VITALS: BP 110/63
== END 2019-02-18 20:15 | disposition left against medical advice (07) ==
LOC: ED 16:56
DX: L02.91 Cutaneous abscess, unspecified (principal); Z53.21 Procedure and treatment not carried out due to patient leaving prior to being seen by health care provider

== ENCOUNTER 2019-09-15 18:21 | Emergency (ER) | payer MEDICAID, OTHER ==
[2019-09-15 19:04] VITALS: BP 117/77
--- NOTE | 2019-09-15 19:09 | UC ---
Altered Mental Status HPI - HPI Summary HPI Summary: 33 yo brought in by a male friend because her room mate had called him due to concern about her "not breathing well". She arrives somnolent, slow in her responses, and with mild hypoxemia. Apparently has had several days of severe cough and fever. She has been using Nyquil liberally, and she does have a history of iv drug use. Denies use of opiates today. She does have gabapentin at home, but cannot tell me whether or not she has been using that, nor can she tell me the indication for it. Has not been earting or drinking well. Reviewed past hx: in December 2018 was taken to ER when found somnolent outside. At that time, pos for benzos, opiates and cocaine. - History Of Current Complaint Stated Complaint: RESP COMP Time Seen by Provider: 09/15/19 18:57 Hx Obtained From: Patient, Family/Doctor Of Naturopathic Medicine - most information comes from her friend. Hx Last Menstrual Period: Nexplanon implant Onset/Duration: Gradual Onset, Lasting Days - per friend, has not been doing well for several days. Timing: Constant Severity Initially: Moderate Severity Currently: Moderate Character: Confusion - mild confusion: knows location, day of the week, thought it was July 2019., Lethargy Aggravating Factor(s): Unknown Alleviating Factor(s): Oxygen - improved O2 sat. Associated Signs And Symptoms: Positive: Negative - Allergies/Home Medications Allergies/Adverse Reactions: Allergies Allergy/AdvReac Type Severity Reaction Status Date / Time No Known Allergies Allergy Verified 09/15/19 18:57 Home Medications: Home Medications Dm/PE/Acetaminophen/Doxylamine [Vicks Nyquil Severe Cold] 1 liq PO Q12H PRN 10/31 [History Confirmed 09/15/19] Gabapentin [Neurontin] 300 mg PO Q6H PRN 09/15/19 [History Confirmed 09/15/19] PMH/Surg Hx/FS Hx/Imm Hx Previously Healthy: No - hx unobtainable. - Surgical History Surgical History: Yes Surgery Procedure, Year, and Place: LEEP procedure - Family History Known Family History: Positive: Unknown - not obtainable today 09/15/19, Respiratory Disease - asthma - Social History Occupation: Unemployed Alcohol Use: Occasionally Substance Use Type: Cocaine, Heroin Substance Use Comment - Amount & Last Used: heroin today Smoking Status (MU): Light Every Day Tobacco Smoker Amount Used/How Often: 10 sig/day Household Exposure Type: Cigarettes Review of Systems All Other Systems Reviewed And Are Negative: Yes Constitutional: Positive: Fever Eyes: Positive: Negative ENT: Positive: Negative Respiratory: Positive: Cough Gastrointestinal: Positive: Negative. Negative: Vomiting, Diarrhea, Nausea Genitourinary: Positive: Negative Motor: Positive: Negative Neurovascular: Positive: Negative Musculoskeletal: Positive: Negative Neurological/Mental Status: Positive: Negative Psychological: Positive: Negative Is Patient Immunocompromised?: No Physical Exam Triage Information Reviewed: Yes Appearance: Ill-Appearing, Other: - somnolent young woman, answers questions slowly, not much dertail. Vital Signs Reviewed: Yes Eye Exam: Other - LEONIE. Eyes: Positive: Conjunctiva Inflamed ENT: Positive: Pharynx normal, Other - dry mucous membranes. Dental Exam: Normal Neck: Positive: Supple Respiratory Exam: Other - mildly hypoxic on room air 92-93% Respiratory: Positive: Decreased breath sounds Cardiovascular: Positive: RRR, No Murmur Abdomen Description: Positive: Nontender, Soft Bowel Sounds: Positive: Present Musculoskeletal Exam: Normal Neurological Exam: Normal Psychological Exam: Normal Skin Exam: Other - small ecchymoses, skin dry AMS Course/Dx - Course Course Of Treatment: transferred to ER for assessment. - Differential Dx/Clinical Impression Differential Diagnosis/HQI/PQRI: Hypoxia, Metabolic Disorder, Sepsis, Other - drug overdose. Provider Diagnosis: Altered level of consciousness - Provider Notifications Discussed Patient Care With: Dr. Ye Time Discussed With Above Provider: 19:05 Discharge ED - Sign-Out/Discharge Documenting (check all that apply): Patient Departure All imaging exams completed and their final reports reviewed: No Studies - Discharge Plan Condition: Guarded Disposition: TRANS HIGHER LVL OF CARE FAC Referrals: No Primary Care Phys,NOPCP [Primary Care Provider] - - Billing Disposition and Condition Condition: GUARDED Disposition: Trans Higher Lvl of Care Fac
== END 2019-09-15 19:20 | disposition short-term general hospital (02) ==
LOC: UCEAST 18:21
DX: R40.4 Transient alteration of awareness (principal); R50.9 Fever, unspecified; R05 Cough; F17.210 Nicotine dependence, cigarettes, uncomplicated
CPT/HCPCS: 99213; G0463

== ENCOUNTER 2019-09-23 20:47 | Emergency (ER) | payer OTHER ==
[2019-09-23 20:58] VITALS: BP 118/73
== END 2019-09-23 21:11 | disposition left against medical advice (07) ==
LOC: ED 20:47
DX: R05 Cough (principal); Z53.21 Procedure and treatment not carried out due to patient leaving prior to being seen by health care provider
CPT/HCPCS: 99281